=== PATIENT | female | born 1975 | race Two or more races ===

== ENCOUNTER 2021-09-02 18:22 | Emergency (ER) | payer OTHER, BC ==
[2021-09-02 19:53] VITALS: BP 145/91; PULSE 92; TEMP 98.3; BMI 30.2
[2021-09-02] MEDS ORDERED: diazePAM 5 MG TABLET PO ONE (20:24)
[2021-09-02] MEDS ORDERED: KETOROLAC TROMETHAMINE 30 MG/1 ML VIAL IM ONE (20:24)
[2021-09-02] MEDS ORDERED: KETOROLAC TROMETHAMINE 30 MG/1 ML VIAL ONE (20:50)
[2021-09-02] MEDS ORDERED: diazePAM 5 MG TABLET ONE (20:50)
== END 2021-09-02 21:18 | disposition home or self-care (01) ==
LOC: JER 18:22
PROC: 3E0233Z Introduction of Anti-inflammatory into Muscle, Percutaneous Approach (ICD-10-PCS; principal; 2021-09-02)
DX: M54.2 Cervicalgia (principal); V49.50XA Passenger injured in collision with unspecified motor vehicles in traffic accident, initial encounter
CPT/HCPCS: 99284-25

== ENCOUNTER 2022-11-04 01:11 | Emergency (ER) | payer BC, OTHER ==
[2022-11-04 01:25] VITALS: BP 142/100; RESP 20; TEMP 98.2; BMI 30.7
[2022-11-04] MEDS ORDERED: SODIUM CHLORIDE 0.9% 500 ML INFUS.BAG IV ONE (02:04)
[2022-11-04 02:17] LABS: CHLORIDE 101 mmol/L (98-107); SODIUM 136 mmol/L (136-145)
[2022-11-04 02:20] LABS: ALBUMIN 3.4 g/dl (3.4-5.0); ANION GAP 3 MMOL/L (8-16); BASO % 0.8 % (0-2.0); BLOOD UREA NITROGEN 12.4 mg/dL (7-18); CALCIUM 9.1 mg/dL (8.5-10.1); CO2 31 mmol/L (21-32); EOS % 4.8 % (0-4.5); GLUCOSE,RANDOM 148 mg/dL (74-106); HEMATOCRIT 33.8 % (32.4-45.2); HEMOGLOBIN 10.5 GM/dL (10.7-15.3); LYMPH % 29.5 % (8-40); MAGNESIUM 1.8 mg/dL (1.8-2.4); MCH 22.5 pg (25.7-33.7); MCHC 31.2 g/dl (32.0-36.0); MEAN PLT VOLUME 8.2 fl (7.5-11.1); NEUT % 57.9 % (42.8-82.8); PLATELET COUNT 330 10^3/uL (134-434); RBC 4.69 M/mm3 (3.60-5.2); RDW 16.5 % (11.6-15.6); WHITE BLOOD COUNT 12.6 K/mm3 (4.0-10.0)
[2022-11-04 02:23] LABS: CREATININE 0.8 mg/dL (0.55-1.3); SGOT/AST 63 U/L (15-37); SGPT/ALT 46 U/L (13-61)
[2022-11-04 02:25] LABS: BILIRUBIN,TOTAL 0.3 mg/dL (0.2-1); TOT PROT 8.2 g/dl (6.4-8.2)
[2022-11-04 02:26] LABS: ALK PHOS 81 U/L (45-117)
[2022-11-04 02:28] LABS: INR 0.92 (0.83-1.09); PROTHROMBIN TIME (PATIENT) 10.7 SEC (9.7-13.0)
[2022-11-04 04:10] VITALS: PULSE 88
== END 2022-11-04 05:12 | disposition home or self-care (01) ==
LOC: JER 01:11
DX: R00.2 Palpitations (principal); R00.0 Tachycardia, unspecified; R07.89 Other chest pain
CPT/HCPCS: 0241U-QW; 36415; 71045-TC-FY; 80053; 80307; 83735; 84439; 84443; 84484; 84702; 85025; 85379; 85610; 93005; 93010; 99285-25